=== PATIENT | male | born 1990 | race Caucasian/White ===

== ENCOUNTER 2020-07-18 23:19 | Emergency (ER) | payer BC, OTHER ==
[~2020-07-18 23:19] MED LIST: FLOMAX 0.4 MG0.4 MG PO; NORCO 5-325 TA1 EACH PO; PHENERGAN 12.12.5 M1 PO
[2020-07-19 00:22] LABS: BUN/CREATININE RATIO 15 (0-10)
[2020-07-19 00:26] LABS: HEMOGLOBIN 14.7 gm/dl (14.0-17.5); WHITE BLOOD COUNT 11.7 K/UL (4.5-11.0)
== END 2020-07-19 00:49 | disposition home or self-care (01) ==
LOC: ER1 23:19
PROVIDERS: Physician Assistant
DX: R51.9 Headache, unspecified (principal); G89.29 Other chronic pain; F41.9 Anxiety disorder, unspecified; F32.9 Major depressive disorder, single episode, unspecified; F90.9 Attention-deficit hyperactivity disorder, unspecified type; Z79.899 Other long term (current) drug therapy; Z88.0 Allergy status to penicillin
CPT/HCPCS: 80048; 85025; 99284

== ENCOUNTER 2021-07-06 16:58 | Emergency (ER) | payer OTHER ==
[2021-07-06 21:58] LABS: RED BLOOD COUNT 4.72 M/UL (4.20-5.50); WHITE BLOOD COUNT 19.8 K/UL (4.5-11.0)
[2021-07-06 22:30] LABS: BUN/CREATININE RATIO 13 (0-10)
[2021-07-06] MEDS ORDERED: FLOMAX 0.4 MG0.4 MG PO (23:19)
[2021-07-06] MEDS ORDERED: IBU600 MG PO (23:19)
[2021-07-06] MEDS ORDERED: ZOFRAN ODT 4 MG4 MG SL (23:19)
[2021-07-06] MEDS ORDERED: HYDROCODON-ACE1 EAC4 PO (23:19)
== END 2021-07-06 23:30 | disposition home or self-care (01) ==
LOC: ER1 16:58
PROVIDERS: Physician Assistant Medical
DX: N13.2 Hydronephrosis with renal and ureteral calculous obstruction (principal); Z87.442 Personal history of urinary calculi; Z88.1 Allergy status to other antibiotic agents
CPT/HCPCS: 80053; 81001; 85025; 96374; 99284; J1885